=== PATIENT | male | born 1940 | race Caucasian/White ===

== ENCOUNTER → 2018-08-12 | Outpatient (CLI) | payer OTHER ==
--- NOTE | 2018-08-12 11:28 | RAD ---
PQRS Compliance statement: One or more of the following individualized dose reduction techniques were utilized for this examination: 1. Automated exposure control. 2. Adjustment of the mA and/or kV according to patient size. 3. Use of iterative reconstruction technique. Indication:Recent falls X 2, HX brain bleed TECHNIQUE: CT head without IV contrast COMPARISON:10/21/2006 FINDINGS: No pathologic extra-axial or intra-axial fluid collection. Small wedge-shaped area of encephalomalacia in the right frontal lobe with comments adrenal dilation of the frontal horn of the right lateral ventricle. No acute intracranial bleed. The basal cisterns are within normal limits. No focal loss of anthony-white differentiation. Orbits are within normal limits. No suspicious calvarial lesion. Visualized paranasal sinuses and mastoid air cells are clear. IMPRESSION: 1. 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 Correlate with history. 2. No acute intracranial bleed. If concern for acute ischemic stroke is high, please consider MRI brain. Electronically signed by: Gurmeet Stockton DO (08/12/2018 11:25 AM) [id number]
== END | disposition home or self-care (01) ==
LOC: CT 10:04
PROVIDERS: ATTEND Registered Nurse
DX: S09.90XA Unspecified injury of head, initial encounter (principal); G93.89 Other specified disorders of brain; X58.XXXA Exposure to other specified factors, initial encounter; Y93.89 Activity, other specified; Y92.89 Other specified places as the place of occurrence of the external cause; Y99.8 Other external cause status
CPT/HCPCS: 70450

== ENCOUNTER → 2018-11-15 | Outpatient (CLI) | payer OTHER ==
--- NOTE | 2018-11-15 13:56 | CARD ---
MR#: [id number] Date of Study: 11/15/2018 Ordering Physician: JADYN BELL, Referring Physician: JADYN BELL, Tech: Joy London DAMIAN APPROVED REPORT EXAM: Two-dimensional and M-mode echocardiogram with Doppler and color Doppler. Other Information Quality : Technically LimitedHR: 53bpm Rhythm : BradycardiaTechnically limited study due to body habitus. INDICATION Hypertension/HCVD 2D DIMENSIONS RVDd3.6 (2.9-3.5cm)Left Atrium(2D)4.3 (1.6-4.0cm) IVSd1.2 (0.7-1.1cm)Aortic Root(2D)3.5 (2.0-3.7cm) LVDd5.2 (3.9-5.9cm)LVOT Diameter2.3 (1.8-2.4cm) PWd1.1 (0.7-1.1cm)LVDs3.7 (2.5-4.0cm) FS (%) 28.4 %SV70.3 ml LVEF(%)54.4 (>50%) M-Mode DIMENSIONS Left Atrium(MM)4.09 (2.5-4.0cm)Aortic Root3.93 (2.2-3.7cm) Aortic Valve AoV Peak Enrike.129.3cm/sAoV VTI25.7cm AO Peak GR.6.7mmHgLVOT Peak Enrike.90.5cm/s LVOT VTI 20.72cmAO Mean GR.4mmHg RAAD (VMAX)2.48ci4WCE (VTI)3.35cm2 Mitral Valve MV E Snjfvina79.2cm/sMV DECEL YYUM957vz MV A Xnjzzhnr59.4cm/sE/A Ratio1.0 Pulmonary Valve PV Peak Weqipnpe73.3cm/sPV Peak Grad.4mmHg Tricuspid Valve TR P. Tofjxmcj127yt/sRAP UDTAOHAY0zaEn TR Peak Gr.33skYfKARG39jbBm Pulmonary Vein S1 Zvamvtpe25.5cm/sD2 Njjoqzka94.5cm/s LEFT VENTRICLE The left ventricle is normal size. There is mild concentric left ventricular hypertrophy. The left ve ntricular systolic function is normal. The Ejection Fraction is 55-60%. There is normal LV segmental wall motion. Transmitral Doppler flow pattern is Grade II-pseudonormal filling dynamics. RIGHT VENTRICLE The right ventricle is normal size. There is normal right ventricular wall thickness. The right ventr icular systolic function is normal. ATRIA The left atrium is mildly dilated. The right atrium size is normal. The interatrial septum is intact with no evidence for an atrial septal defect or patent foramen ovale as noted on 2-D or Doppler imagi ng. AORTIC VALVE The aortic valve is thickened but opens well. The aortic valve is trileaflet. Doppler and Color Flow revealed no significant aortic regurgitation. There is no significant aortic valvular stenosis. MITRAL VALVE The mitral valve is normal in structure and function. There is no evidence of mitral valve prolapse. There is no mitral valve stenosis. Doppler and Color Flow revealed no mitral valve regurgitation note d. TRICUSPID VALVE The tricuspid valve is normal in structure and function. Doppler and Color Flow revealed trace tricus pid regurgitation. The PA pressure was estimated at 21 mmHg. There is no tricuspid valve prolapse or vegetation. There is no tricuspid valve stenosis. PULMONIC VALVE The pulmonic valve is not well visualized. GREAT VESSELS The aortic root is normal in size. The ascending aorta is normal in size. The IVC is normal in size a nd collapses >50% with inspiration. PERICARDIAL EFFUSION There is no evidence of significant pericardial effusion. Critical Notification Critical Value: No <Conclusion> The left ventricular systolic function is normal. The Ejection Fraction is 55-60%. There is normal LV segmental wall motion. Trace tricuspid regurgitation. The PA pressure was estimated at 21 mmHg. There is no evidence of significant pericardial effusion. Signed by : Arya Stoll, Electronically Approved : 11/15/2018 13:55:44
== END | disposition home or self-care (01) ==
LOC: ECHO 13:09
PROVIDERS: ATTEND Internal Medicine Cardiovascular Disease
DX: I11.9 Hypertensive heart disease without heart failure (principal); R00.1 Bradycardia, unspecified
CPT/HCPCS: 93306

== ENCOUNTER → 2018-11-22 | Outpatient (CLI) | payer OTHER ==
[2018-11-22 08:34] LABS: BASO # 0.1 x10^3/uL (0.0-0.2); BASO % 1 % (0-3); EOS # 0.3 x10^3/uL (0.0-0.7); EOS % 6 % (0-3); HEMATOCRIT 41.2 % (39.0-53.0); LYMPH # 1.3 x10^3/uL (1.0-4.8); LYMPH % 25 % (24-48); MEAN CORPUSCULAR HEMOGLOBIN 31 pg (25-35); MEAN CORPUSCULAR HGB CONC 34 g/dL (31-37); MEAN CORPUSCULAR VOLUME 92 fL (79-100); MONO # 0.5 x10^3/uL (0.0-1.1); MONO % 9 % (0-9); NEUT % 59 % (31-73); PLATELET COUNT 180 x10^3/uL (140-400); RED BLOOD COUNT 4.48 x10^6/uL (4.30-5.70); RED CELL DISTRIBUTION WIDTH 13.6 % (11.5-14.5); WHITE BLOOD COUNT 5.1 x10^3/uL (4.0-11.0)
[2018-11-22 08:43] LABS: ALBUMIN 3.4 g/dL (3.4-5.0); ALBUMIN/GLOBULIN RATIO 0.8 (1.0-1.7); CALCIUM 9.2 mg/dL (8.5-10.1); CREATININE 1.5 mg/dL (0.7-1.3); GFR 45.5; POTASSIUM 4.4 mmol/L (3.5-5.1); TOTAL BILIRUBIN 0.6 mg/dL (0.2-1.0); TOTAL PROTEIN 7.7 g/dL (6.4-8.2)
--- NOTE | 2018-12-08 21:37 | RAD ---
MR#: [id number] Date of Study: 11/22/2018 Ordering Physician: JADYN BELL, Referring Physician: JADYN BELL, Tech: Asia Hummel RDMS, RVT, RTR APPROVED REPORT Patient Location: OUT-PATIENT Laterality:Bilateral Indications Bruit Grayscale images of the bilateral common carotid, external and internal carotid vessels demonstrate s mall and soft calcified plaque without any focal obstruction noted. Spectral waveforms and color Doppler are within normal limits. The peak systolic velocities in the co mmon carotid is approximate 75 cm/s. The peak systolic velocity in the internal carotid artery is shahbaz roximately 72 cm/s. Normal ICA to CCA ratios are noted. The vertebral velocities are antegrade bilate rally. Overall 0 to less than 50% stenosis. Critical Notification Critical Value: No <Conclusion> 1. No focal high-grade stenosis identified in the bilateral carotid arterial vessels. Signed by : Jadyn Bell, Electronically Approved : 12/08/2018 21:37:06
== END | disposition home or self-care (01) ==
LOC: US 07:50
PROVIDERS: ATTEND Internal Medicine Cardiovascular Disease
DX: I65.23 Occlusion and stenosis of bilateral carotid arteries (principal); I73.9 Peripheral vascular disease, unspecified; I10 Essential (primary) hypertension
CPT/HCPCS: 36415; 80053; 80061; 85025; 93880